=== PATIENT | female | born 1995 | race Caucasian/White ===

== ENCOUNTER 2019-01-31 07:27 | Inpatient (IN) | payer MEDICAID, OTHER ==
[2019-01-31] VITALS (16 sets, daily range): BP systolic 109–121; BP diastolic 60–80; PULSE 68–102; RESP 12–18; Ht 157.5 cm; Wt 70.2 kg
[~2019-01-31] VITALS: Ht 157.5 cm; Wt 70.2 kg
--- NOTE | 2019-01-31 09:00 | ERD ---
ER Documentation Chief Complaint Chief Complaint 9 wks ,pelvic pain HPI 23-year-old female referred to the emergency department from her primary care clinic for evaluation of pelvic pain. Patient states that she is being followed with care for her early trimester . She was noted to have a missed miscarriage. She states that she is having pelvic pain without significant bleeding. She reports no fevers chills or discharge. She reports the pain is mild to moderate. ROS All systems reviewed and are negative except as per history of present illness. PMhx/Soc Medical and Surgical Hx: pt denies Medical Hx, pt denies Surgical Hx Hx Alcohol Use: No Hx Substance Use: No Hx Tobacco Use: No Smoking Status: Never smoker Physical Exam Vitals Vital Signs Date Temp Pulse Resp B/P (MAP) Pulse Ox O2 O2 Flow FiO2 Time Delivery Rate 01/31/19 98.6 85 18 125/74 100 07:34 (91) Physical Exam GENERAL: The patient is well developed and appropriate for usual state of health in no apparent distress HEENT: Pupils equal, round, and reactive to light. EOMI. There is no scleral icterus. NECK: C-spine is soft and supple, there is no meningismus. There is no cervical lymphadenopathy. LUNGS: Clear to auscultation bilaterally. There are no rales, wheezes or rhonchi. HEART: Regular rate and rhythm, no murmurs, clicks, rubs or gallops. ABDOMEN: Soft, non-tender, non-distended. There are bowel sounds in all four quadrants. No rebound or guarding. EXTREMITIES: There is no peripheral cyanosis or edema. No focal swelling or erythema. NEURO: The patient moves all four extremities with 5/5 strength. Cranial nerves II - XII are intact. Normal gait. Alert and oriented SKIN: There is no apparent rash or petechiae. HEME/LYMPHATIC: There is no evidence of excessive bruising or lymphedema. PSYCHIATRIC: The patient does not appear anxious or depressed. Result Diagram: 01/31/19 0756 Results 24 hrs Laboratory Tests Test 01/31/19 07:56 White Blood Count 9.5 10^3/ul Red Blood Count 4.34 10^6/ul Hemoglobin 12.5 g/dl Hematocrit 36.8 % Mean Corpuscular Volume 84.8 fl Mean Corpuscular Hemoglobin 28.8 pg Mean Corpuscular Hemoglobin Concent 34.0 g/dl Red Cell Distribution Width 12.1 % Platelet Count 251 10^3/UL Mean Platelet Volume 9.9 fl Immature Granulocytes % 0.400 % Neutrophils % 77.1 % Lymphocytes % 17.6 % Monocytes % 4.1 % Eosinophils % 0.6 % Basophils % 0.2 % Nucleated Red Blood Cells % 0.0 /100WBC Immature Granulocytes # 0.040 10^3/ul Neutrophils # 7.3 10^3/ul Lymphocytes # 1.7 10^3/ul Monocytes # 0.4 10^3/ul Eosinophils # 0.1 10^3/ul Basophils # 0.0 10^3/ul Nucleated Red Blood Cells # 0.0 10^3/ul Urine Color YELLOW Urine Clarity SLIGHTLY CLOUDY Urine pH 6.0 Urine Specific [place] 1.011 Urine Ketones NEGATIVE mg/dL Urine Nitrite NEGATIVE mg/dL Urine Bilirubin NEGATIVE mg/dL Urine Urobilinogen NEGATIVE mg/dL Urine Leukocyte Esterase 3+ [place]/ul Urine Microscopic RBC 3 /HPF Urine Microscopic WBC 2 /HPF Urine Squamous Epithelial Cells FEW /HPF Urine Bacteria FEW /HPF Urine Hemoglobin NEGATIVE mg/dL Urine Glucose NEGATIVE mg/dL Urine Total Protein NEGATIVE mg/dl Procedures/MDM Patient was taken to a room, seen and evaluated. Comfort measures were initiated. Diagnostic tests were ordered and reviewed. RADIOLOGY: Reviewed with the radiologist CONSULTATION: Dr. Dalton was notified for admission REEVALUATION: Diagnostic tests were appreciated. Patient remained hemody namically stable. No significant bleeding was noted. MEDICAL DECISION MAKIN-year-old female presents to the emergency department with a missed miscarriage. Patient has no significant active bleeding, evidence of infection or other high-risk applications, but will be admitted for D&C. Departure Diagnosis: Primary Impression: demise Condition: WHITLEY Whitten Jan 31, 2019 09:00
--- NOTE | 2019-01-31 12:53 | PREAC ---
Date/Time of Note Date/Time of Note DATE: 01/31/19 TIME: 12:52 Anesthesia Eval and Record Evaluation Time Pre-Procedure Interview DATE: 01/31/19 TIME: 12:52 Age 23 Sex female NPO: 8 hrs Preoperative diagnosis demise Planned procedure D&C Past Medical History Past Medical History: None Surgery & Anesthesia Issues No known issue Meds Anticoagulation: No Beta Darlene within 24 hr: No Reason Beta Darlene not given: Pt. not on B-Darlene Meds reviewed: Yes Allergies Allergies Reviewed: Yes Labs/Studies Labs Reviewed: Reviewed by anesthesiologist Result Diagram: 01/31/19 0756 Laboratory Tests 01/31/19 07:56 Blood Bank Test 01/31/19 07:56 Blood Type A POSITIVE test: Positive Pre-procedure Exam Last vitals Vital Signs Date Temp Pulse Resp B/P (MAP) Pulse Ox O2 O2 Flow FiO2 Time Delivery Rate 01/31/19 78 18 122/76 99 Room Air 12:45 (91) 01/31/19 98.6 07:34 Airway: Adequate mouth opening Mallampati: Mallampati II Teeth: Normal Lung: Normal Heart: Normal ASA Physical Status ASA physical status: 1 Emergency: E Planned Anesthetic General/MAC: ETT Pre-operative Attestations Prior to commencing anesthesia and surgery, the patient was re-evaluated, there was verification of: *The patient's identity *The results of appropriate recent lab work and preoperative vital signs *The above evaluation not changing prior to induction *Anesthetic plan, risk benefits, alternative and complications discussed with patient/family; questions answered; patient/family understands, accepts and wishes to proceed. STEVE POON Jan 31, 2019 12:53
[2019-01-31] MEDS ORDERED: LIDOCAINE 100 MG SYRINGE ONE (12:56)
[2019-01-31] MEDS ORDERED: ROCURONIUM 50 MG INJ ONE (12:56)
[2019-01-31] MEDS ORDERED: PROPOFOL 20 ML ONE (12:56)
[2019-01-31] MEDS ORDERED: MIDAZOLAM 1 MG/ML 2 ML INJ ONE (12:57)
[2019-01-31] MEDS ORDERED: ONDANSETRON 4 MG INJ ONE (12:57)
[2019-01-31] MEDS ORDERED: SUGAMMADEX SODIUM 200 MG/2 ML VIAL IV ONE (12:57)
[2019-01-31] MEDS ORDERED: FENTAnyl 50 MCG/ML VIAL ONE (12:57)
[2019-01-31] MEDS ORDERED: DEXAMETHASONE 4 MG/ML 5 ML INJ ONE (12:57)
--- NOTE | 2019-01-31 13:10 | HP ---
Date/Time of Note Date/Time of Note DATE: 01/31/19 TIME: 12:59 Assessment/Plan VTE Prophylaxis SCD applied (from Nsg): Yes Pharmacological prophylaxis: other (Low risk) Pharm contraindication: low risk/ambulating Lines/Catheters IV Catheter Type (from Nrsg): [place] line still needed: No Assessment/Plan Assessment/Plan 23 years old 2 para 1-0-0-1 with missed .Treatment options including expectant management, medical treatment with Cytotec and dilation with suction curettage were discussed in detail with the patient and her partner. She would like to have dilation and suction curettage. Risks including but not limited to bleeding, infection, uterine perforation, injury to other organs, bowel, bladder, ureter, vessel and nerves if uterine perforation occurs, blood transfusion, blood transfusion transfusion-related infection, scar formation, risk of anesthesia and other indicated surgery were discussed in detail with the patient. She expressed understanding. All of the questions were answered. She signed the informed consent. Result Diagram: 01/31/19 0756 Results 24hrs Laboratory Tests Test 01/31/19 07:56 White Blood Count 9.5 Red Blood Count 4.34 Hemoglobin 12.5 Hematocrit 36.8 L Mean Corpuscular Volume 84.8 Mean Corpuscular Hemoglobin 28.8 L Mean Corpuscular Hemoglobin Concent 34.0 Red Cell Distribution Width 12.1 Platelet Count 251 Mean Platelet Volume 9.9 Immature Granulocytes % 0.400 Neutrophils % 77.1 H Lymphocytes % 17.6 Monocytes % 4.1 Eosinophils % 0.6 Basophils % 0.2 Nucleated Red Blood Cells % 0.0 Immature Granulocytes # 0.040 H Neutrophils # 7.3 Lymphocytes # 1.7 Monocytes # 0.4 Eosinophils # 0.1 Basophils # 0.0 Nucleated Red Blood Cells # 0.0 Urine Color YELLOW Urine Clarity SLIGHTLY CLOUDY A Urine pH 6.0 Urine Specific [place] 1.011 Urine Ketones NEGATIVE Urine Nitrite NEGATIVE Urine Bilirubin NEGATIVE Urine Urobilinogen NEGATIVE Urine Leukocyte Esterase 3+ H Urine Microscopic RBC 3 Urine Microscopic WBC 2 Urine Squamous Epithelial Cells FEW Urine Bacteria FEW A Urine Hemoglobin NEGATIVE Urine Glucose NEGATIVE Urine Total Protein NEGATIVE Beta HCG, Quantitative 51404.0 HPI/ROS Admit Date/Time Admit Date/Time 01/31/2019 Hx of Present Illness 23 years old 2 para 1-0-0-1 with single intrauterine at 9 weeks and 6 days with missed presented to emergency department with complaining of pelvic pain and cramping. She denies nausea, vomiting, shortness of breath, chest pain, headache, visual changes or vaginal bleeding. She had 2 ultrasound which confirmed absent of heart rate ROS Eyes: no complaints ENT: no complaints Respiratory: no complaints Cardiovascular: no complaints Gastrointestinal: no complaints Genitourinary: no complaints, other (Pelvic pain and cramp) Musculoskeletal: no complaints Skin: no complaints Neurologic: no complaints Endocrine: no complaints Psychological: no complaints PMH/Family/Social Past Medical History Medical History: no pertinent history Medications vitamin, ferrous sulfate Past Surgical History Past Surgical Hx: no surgical history Family History Significant Family History: no pertinent family hx Social History Alcohol Use: none Smoking Status: Never smoker Drug Use: none Exam/Review of Systems Vital Signs Vitals Vital Signs Date Temp Pulse Resp B/P (MAP) Pulse Ox O2 O2 Flow FiO2 Time Delivery Rate 01/31/19 78 18 122/76 99 Room Air 12:45 (91) 01/31/19 98.6 07:34 Exam Constitutional: alert, oriented, well developed Psych: nl mood/affect Head: normocephalic Eyes: nl conjunctiva ENMT: nl external ears & nose Neck: supple, non-tender Respiratory: clear to auscultation, normal air movement Cardiovascular: regular rate and rhythm Gastrointestinal: soft, nl liver, spleen, non-tender Genitourinary - Male: other Genitourinary - Female: other (External genitalia within normal limits. Vagina with minimal brownish discharge. Cervix with no lesion, no cervical motion tenderness. Uterus 12 weeks, mobile, nontender. Adnexa no palpable mass bilateral)) Musculoskeletal: nl extremities to inspection, nl gait and stance Extremities: normal pulses TIERRA KAYE Jan 31, 2019 13:09
[2019-01-31] MEDS ORDERED: METOCLOPRAMIDE 10 MG INJ IV PRN (14:30)
[2019-01-31] MEDS ORDERED: HYDROmorphONE 1 MG/5 ML IV SYRINGE IV PRN ×2 (14:30)
[2019-01-31] MEDS ORDERED: ONDANSETRON 4 MG INJ IV PRN (14:30)
[2019-01-31] MEDS ORDERED: MEPERIDINE 25 MG INJ IV PRN (14:30)
[2019-01-31] MEDS ORDERED: FENTAnyl 50 MCG/ML VIAL IV PRN ×2 (14:30)
--- NOTE | 2019-01-31 14:54 | PAC ---
Date/Time of Note Date/Time of Note DATE: 01/31/19 TIME: 14:54 Post-Anesthesia Notes Post-Anesthesia Note Last documented vital signs Vital Signs Date Temp Pulse Resp B/P (MAP) Pulse Ox O2 O2 Flow FiO2 Time Delivery Rate 01/31/19 78 18 122/76 99 Room Air 12:45 (91) 01/31/19 98.6 07:34 Activity: WNL Respiratory function: WNL Cardiovascular function: WNL Mental status: Baseline Pain reasonably controlled: Yes Hydration appropriate: Yes Nausea/Vomiting absent: Yes STEVE POON Jan 31, 2019 14:54
[2019-01-31] MEDS ORDERED: MISOPROSTOL 200 MCG TAB PO ONE (15:00)
[2019-01-31] MEDS ORDERED: HYDROCODONE/APAP (5/325) TAB PO PRN (15:30)
--- NOTE | 2019-01-31 16:11 | OPR ---
Date/Time of Note Date/Time of Note DATE: 01/31/19 TIME: 16:06 Operative Report Procedure Date: Jan 31, 2019 Preoperative Diagnosis 23 years old 2 para 1-0-0-1 with missed . Postoperative Diagnosis 23 years old 2 para 1-0-0-1 with missed . Operation/Procedure Performed Dilation and suction curettage Surgeon see signature line Stars Analytical Lead None Anesthesia Type: general Anesthesiologist: STEVE POON Estimated Blood Loss: 250 - 300 ml's Transfusion none Specimen Productive of conception Grafts/Implants none Tubes/Drains None Complications none Pt Condition Post Procedure: stable Disposition: PACU Procedure Description FINDINGS: Exam under anesthesia: External genitalia normal. Vagina with minimal brownish discharge. Cervix: Nulliparous with no lesion, fingertip open. Uterus: 12 weeks, mobile, anteverted. Adnexa: No palpable mass, bilateral. INDICATION AND HISTORY: 23 years old 2 para 1-0-0-1 with missed . Treatment options including expectant management, medical treatment with Cytotec and dilation with suction curettage were discussed in detail with the patient and her partner. She would like to have dilation and suction curettage. Risks including but not limited to bleeding, infection, uterine perforation, injury to other organs, bowel, bladder, ureter, vessel and nerves if uterine perforation occurs, blood transfusion, blood transfusion transfusion-related infection, scar formation, risk of anesthesia and other indicated surgery were discussed in detail with the patient and her partner. Both expressed understanding. All of the questions were answered. She signed the informed consent. PROCEDURE IN DETAIL: The patient was identified and the procedure verified. She was given general anesthesia without difficulty and placed in a modified dorsal lithotomy. The patient was examined under general anesthesia as noted above. The patient was then prepped and draped in the normal sterile fashion. The bladder was drained by insertion of straight catheter. Then, a weighted speculum was used to visualize the cervix, which was grasped on anterior lip with a single tooth tenaculum. The cervix was already fingertip dilated, cervix was dilated more to #10. Then a #9 suction curettage was introduced into the uterine cavity. Suction curettage was performed in a 360-degree fashion until no further tissue was obtained. Then a sharp curette was gently introduced into the uterine cavity until a gritty texture was felt in all 4 quadrants. Again, the suction curettage was introduced to remove the remaining clot and debris, no further tissue was obtained. The specimen was sent to pathology. Tenaculum was removed. There was no further bleeding. The speculum was removed. The patient tolerated the procedure well. She was extubated in the operating room and transferred to the recovery room in stable condition. TIERRA KAYE Jan 31, 2019 16:11
[2019-01-31] MEDS ORDERED: IBUPROFEN 600 MG TAB NGT SCH (18:00)
== END 2019-01-31 19:39 | disposition home or self-care (01) | DRG 770 ==
LOC: FTE 07:27 → REC 08:58
PROVIDERS: ADMIT Obstetrics & Gynecology; ATTEND Obstetrics & Gynecology
PROC: 10D17ZZ Extraction of Products of Conception, Retained, Via Natural or Artificial Opening (ICD-10-PCS; principal; 2019-01-31 14:30)
DX: O02.1 Missed abortion (principal)
CPT/HCPCS: 36415; 76801; 81001; 84702; 85025; 86900; 86901; 88305; J1100; J1170; J2001; J2250; J2405; J3010